=== PATIENT | female | born 1955 | race Native Hawaiian/Other Pacific Islander ===

== ENCOUNTER 2017-03-07 13:27 | Observation (INO) | payer OTHER ==
[~2017-03-07] VITALS: Ht 170.2 cm; Wt 106.3 kg
[2017-03-07 15:09] LABS: PLATELET COUNT 132 K/uL (152-353)
[2017-03-07 15:33] LABS: POTASSIUM 3.4 mmol/L (3.6-5.2); SODIUM 142 mmol/L (136-145)
[2017-03-07 16:27] LABS: PARTIAL THROMBOPLASTIN TIME 25.2 SECONDS (24.5-33.6)
[2017-03-07 20:00] VITALS: BP 140/80; TEMP 97.9
[2017-03-07 20:14] VITALS: BP 153/85; TEMP 97.6; Ht 170.2 cm; Wt 106.3 kg
[2017-03-07] MEDS ORDERED: ADDERALL20 MG OR (21:05)
[2017-03-07] MEDS ORDERED: AZOR1 TA3 PO (21:08)
[2017-03-08 00:06] VITALS: BP 114/68; TEMP 97.8
--- NOTE | 2017-03-08 00:39 | NUR ---
03/08/[address] [facility] PHYSICAN NOTIFIED OF SECOND TROPONIN BEING 0.12.FIRST TROPONIN WAS 0.09.NEW ORDER GIVEN TO PLACE NITOPASTE 1 INCH TO CHEST EVERY 6 HOURS.EKG WAS NORMAL SINUS RHYTHM.NO C/O OF CHEST PAIN.CC
[2017-03-08 04:00] VITALS: BP 109/65; TEMP 97.6
[2017-03-08 06:58] LABS: PLATELET COUNT 126 K/uL (152-353)
[2017-03-08 07:23] LABS: SODIUM 140 mmol/L (136-145)
[2017-03-08 08:00] VITALS: BP 133/74; TEMP 97.8
[2017-03-08 12:00] VITALS: BP 128/69; TEMP 98.2
[2017-03-08 16:00] VITALS: BP 127/79; TEMP 98.7
[2017-03-08 20:00] VITALS: BP 133/75; TEMP 97
[2017-03-09] VITALS: BP 139/84; TEMP 98
[2017-03-09 04:00] VITALS: BP 133/74; TEMP 98.8
[2017-03-09 05:20] LABS: PLATELET COUNT 130 K/uL (152-353)
[2017-03-09 05:33] LABS: POTASSIUM 3.6 mmol/L (3.6-5.2); SODIUM 140 mmol/L (136-145)
[2017-03-09 08:00] VITALS: BP 124/79; TEMP 97.5
--- NOTE | 2017-03-09 15:09 | NUR ---
PT DISCHARGED TO HOME AT 1320, IV D/C'D TIP INTACT, NO REDNESS, SWELLING OR EDEMA, DISCHARGE INSTRUCTIONS AND PRESCRIPTIONS GIVEN TO PATIENT, PT STATED UNDERSTANDING OF D/C INSTRUCTIONS, PT AMBULATED OUT TO VEHICLE @1330 WITH FAMILY PRESENT, NAD NOTED.
== END 2017-03-09 13:20 | disposition home or self-care (01) ==
LOC: MED/SURG 13:27
PROVIDERS: Emergency Medicine; ADMIT Internal Medicine
DX: R07.89 Other chest pain (principal); R53.1 Weakness; I10 Essential (primary) hypertension; R11.0 Nausea
CPT/HCPCS: 36415; 36591; 80048; 80053; 82150; 82550; 82553; 83036; 83690; 84484; 85027; 85610; 85730; 93005; 96372; 99220; G0378; G0379; J1650

== ENCOUNTER 2017-03-18 08:25 | Outpatient (CLI) | payer OTHER ==
[~2017-03-18 08:25] MED LIST: ADDERALL20 MG OR; AZOR1 TA3 PO
== END 2017-03-18 19:24 | disposition home or self-care (01) ==
LOC: MAMMO 08:25
DX: Z12.31 Encounter for screening mammogram for malignant neoplasm of breast (principal)
CPT/HCPCS: G0202-TC

== ENCOUNTER 2017-05-01 08:48 | Outpatient (CLI) | payer OTHER | END 2017-05-01 10:00 | disposition home or self-care (01) | LOC: US 08:48 | DX: D64.89 Other specified anemias (principal); R53.81 Other malaise ==

== ENCOUNTER 2022-09-18 16:17 | Outpatient (CLI) | payer OTHER | END 2022-09-18 19:36 | disposition home or self-care (01) | LOC: US 16:17 | PROVIDERS: ATTEND Physician Assistant | DX: M79.604 Pain in right leg (principal) ==

== ENCOUNTER 2022-09-30 13:56 | Outpatient (CLI) | payer OTHER | END 2022-09-30 19:26 | disposition home or self-care (01) | LOC: CT 13:56 | PROVIDERS: ATTEND Physician Assistant | DX: R59.0 Localized enlarged lymph nodes (principal); M79.89 Other specified soft tissue disorders ==

== ENCOUNTER 2023-01-27 15:08 | Outpatient (CLI) | payer OTHER | END 2023-01-27 19:11 | disposition home or self-care (01) | LOC: CT 15:08 | PROVIDERS: ATTEND Physician Assistant | DX: M54.59 Other low back pain (principal); R10.9 Unspecified abdominal pain ==